=== PATIENT | female | born 1955 | race Caucasian/White ===

== ENCOUNTER 2020-02-29 17:05 | Emergency (ER) | payer OTHER ==
[~2020-02-29] VITALS: Ht 165.1 cm; Wt 99.8 kg
[~2020-02-29 17:05] MED LIST: CRESTOR5 MG; HIGH BLOOD PRESSURE
[2020-02-29] MEDS ORDERED: METFORMIN HCL500 M3 PO (17:31)
[2020-02-29] MEDS ORDERED: ZOLOFT100 MG PO (17:31)
[2020-02-29 18:01] LABS: URINE BLOOD NEGATIVE (Negative); URINE CLARITY CLEAR; URINE COLOR YELLOW; URINE GLUCOSE-RANDOM NEGATIVE (Negative); URINE KETONES NEGATIVE (Negative); URINE LEUKOCYTES-REFLEX NEGATIVE (Negative); URINE NITRITE-REFLEX NEGATIVE (Negative); URINE PROTEIN TRACE (Negative); URINE SPECIFIC GRAVITY >= 1.030 (1.005-1.030); URINE UROBILINOGEN 0.2 E.U./dl (0.2-1.0)
[2020-02-29 18:04] LABS: ICTOTEST (BILI CONFIRMATORY) Negative (Negative); URINE BILIRUBIN 1+ (Negative)
[2020-02-29 18:13] LABS: AMP/METHAMP Negative (Negative); BARBITURATES Negative (Negative); BENZODIAZEPINES Negative (Negative); COCAINE Negative (Negative); METHADONE Negative (Negative); OPIATES POSITIVE (Negative); PCP Negative (Negative); THC Negative (Negative)
[2020-02-29] MEDS ORDERED: VISTARIL 25 MG25 M1 PO (18:21)
[2020-02-29] MEDS ORDERED: XANAX 0.5 MG0.5 MG PO (18:21)
[2020-02-29 18:33] VITALS: BP 138/85
== END 2020-02-29 18:34 | disposition home or self-care (01) ==
LOC: M.ERS 17:05
PROVIDERS: Physician Assistant
DX: F41.0 Panic disorder [episodic paroxysmal anxiety] (principal); E78.00 Pure hypercholesterolemia, unspecified

== ENCOUNTER → 2020-09-23 | Outpatient (CLI) | payer OTHER ==
[~2020-09-23] MED LIST changes: +METFORMIN HCL500 M3 PO; +VISTARIL 25 MG25 M1 PO; +XANAX 0.5 MG0.5 MG PO; +ZOLOFT100 MG PO
== END ==
LOC: M.RAD 08:15
PROVIDERS: ATTEND Registered Nurse Diabetes Educator
DX: Z12.31 Encounter for screening mammogram for malignant neoplasm of breast (principal)